=== PATIENT | male | born 1955 | race African-American/Black ===

== ENCOUNTER 2018-08-18 11:26 | Emergency (ER) | END 2018-08-18 12:37 | disposition home or self-care (01) ==

== ENCOUNTER 2019-04-25 16:12 | Emergency (ER) | payer MEDICARE, OTHER ==
[~2019-04-25] VITALS: Ht 190.5 cm; Wt 64.7 kg
[~2019-04-25 16:12] MED LIST: HYDR-4011 PO; HYDR-762 PO
[2019-04-25 16:19] VITALS: Ht 190.5 cm; Wt 64.7 kg
[2019-04-25] MEDS ORDERED: DOCU-144 PO (20:03)
[2019-04-25] MEDS ORDERED: SENN-120 PO (20:03)
[2019-04-25 20:12] VITALS: BP 163/108; PULSE 60; RESP 23
[2019-04-25] MEDS ORDERED: IBUPROFEN 800 MG TAB PO ONE (20:30)
--- NOTE | 2019-04-25 23:10 | ERD ---
ER Documentation Chief Complaint Chief Complaint SEVERE BACK PAIN - HX OF SCOLOSIS HPI Patient is a 64-year-old male with scoliosis who presents saying "back pain" and "I have scoliosis". He also feels constipated and says "my food is not being digested". He reports last bowel movement was yesterday. Upon review of old medical records this is the patient's fourth visit to the ER since 2014. He does not currently have a primary doctor. ROS All systems reviewed and are negative except as per history of present illness. Medications Home Meds Active Scripts Sennosides* (Senna Lax*) 8.6 Mg Tablet, 1 TAB PO DAILY, #30 TAB Prov:ROCKY MCKINNEY MD 04/25/19 Docusate Sodium* (Colace*) 100 Mg Capsule, 100 MG PO TID, #30 CAP Prov:ROCKY MCKINNEY MD 04/25/19 Hydrocodone/Acetaminophen ([place] 5-325 Tablet) 1 Each Tablet, 1 TAB PO Q6H PRN for PAIN, #10 TAB Prov:JAYCEE PAGE PA-C 08/18/18 Hydrocodone Bit-Acetaminophen* ([place]*) 10-325 Mg Tablet, 1 TAB PO Q6 PRN for PAIN, #20 TAB Prov:MARYSE GOMEZ MD 05/07/15 Allergies Allergies: Coded Allergies: No Known Allergy (Unverified , 04/25/19) PMhx/Soc Medical and Surgical Hx: pt denies Surgical Hx History of Surgery: No Anesthesia Reaction: No Hx Neurological Disorder: No Hx Respiratory Disorders: No Hx Psychiatric Problems: No Hx Miscellaneous Medical Probl: Yes (chronic back pain) Hx Alcohol Use: No Hx Substance Use: No Hx Tobacco Use: Yes Smoking Status: Current every day smoker FmHx Family History: diabetes Physical Exam Vitals Vital Signs Date Temp Pulse Resp B/P (MAP) Pulse Ox O2 O2 Flow FiO2 Time Delivery Rate 04/25/19 60 23 163/108 100 Room Air 20:12 (126) 04/25/19 71 19 110/53 97 Room Air 18:57 (72) 04/25/19 97.0 79 19 152/102 97 16:19 (119) Physical Exam Const: No acute distress Head: Atraumatic Eyes: Normal Conjunctiva ENT: Normal External Ears, Nose and Mouth. Neck: Full range of motion. No meningismus. Resp: Clear to auscultation bilaterally Cardio: Regular rate and rhythm, no murmurs Abd: Soft, non tender, non distended. Normal bowel sounds Skin: No petechiae or rashes Back: No midline or flank tenderness Ext: No cyanosis, or edema Neur: Awake and alert Psych: Normal Mood and Affect Results 24 hrs Current Medications Medications Dose Sig/Leah Start Time Status Last (Trade) Ordered Route PRN Stop Time Admin Dose Reason Admin Ibuprofen 800 mg ONCE ONCE 04/25/19 DC 04/25/19 (Motrin) PO 20:30 20:09 04/25/19 20:31 Procedures/MDM Smoking Cessation Therapy: Pt. was lectured for greater than 3 minutes on the health risks of continued smoking and the benefits of cessation. Patient is a 64-year-old male with scoliosis who presents with back pain and constipation. The patient will be given a prescription for senna and Colace. I doubt bowel obstruction. I do not believe patient requires further work-up at this time. I doubt epidural abscess, epidural hematoma, or cauda equina syndrome. The patient will need to follow-up closely with a primary doctor within the next 24 to 48 hours and I will give him information for the local clinics. The patient can return for any worsening symptoms. Departure Diagnosis: Primary Impression: Constipation Constipation type: unspecified constipation type Qualified Codes: K59.00 - Constipation, unspecified Additional Impression: Back pain Back pain location: low back pain Chronicity: acute Back pain laterality: unspecified Sciatica presence: unspecified whether sciatica present Qualified Codes: M54.5 - Low back pain Condition: Fair Patient Instructions: Back Pain (Acute Or Chronic), Constipation (Adult) Additional Instructions: Call your primary care doctor TOMORROW for an appointment during the next 1-2 days.See the doctor sooner or return here if your condition worsens before your appointment time. ROCKY MCKINNEY MD April 25, 2019 23:10
== END 2019-04-25 20:09 | disposition home or self-care (01) ==
LOC: E/R 16:12
DX: K59.00 Constipation, unspecified (principal); M54.5 Low back pain; F17.210 Nicotine dependence, cigarettes, uncomplicated
CPT/HCPCS: 99282

== ENCOUNTER 2019-05-27 13:11 | Emergency (ER) | payer MEDICARE, OTHER ==
[~2019-05-27] VITALS: Ht 190.5 cm; Wt 67.4 kg
[~2019-05-27 13:11] MED LIST changes: +DOCU-144 PO; +SENN-120 PO
[2019-05-27 13:18] VITALS: BP 128/84; PULSE 83; RESP 20; Ht 190.5 cm; Wt 67.4 kg
--- NOTE | 2019-05-27 14:42 | ERD ---
ER Documentation Chief Complaint Chief Complaint lower back pain, hx of 'spinal problems'. out of norco. ambulatory. HPI 64-year-old male, presents to the emergency department, requesting a refill for medication for constipation, acid reflux and lower back pain. The patient states that he has an appointment next week with his doctor. He currently denies abdominal pain, no fever or chills, no distal weakness numbness or tingling. ROS All systems reviewed and are negative except as per history of present illness. Medications Home Meds Active Scripts Ranitidine Hcl* (Zantac*) 150 Mg Tablet, 150 MG PO BID PRN for EPIGASTRIC PAIN, #30 TAB Prov:SURINDER MENDOZA MD 05/27/19 Docusate Sodium* (Colace*) 100 Mg Capsule, 100 MG PO TID, #30 CAP Prov:SURINDER MENDOZA MD 05/27/19 Hydrocodone/Acetaminophen ([place] 5-325 Tablet) 1 Each Tablet, 1 TAB PO BID PRN for PAIN for 10 Days, #20 TAB Prov:SURINDER MENDOZA MD 05/27/19 Sennosides* (Senna Lax*) 8.6 Mg Tablet, 1 TAB PO DAILY, #30 TAB Prov:ROCKY MCKINNEY MD 04/25/19 Docusate Sodium* (Colace*) 100 Mg Capsule, 100 MG PO TID, #30 CAP Prov:ROCKY MCKINNEY MD 04/25/19 Hydrocodone/Acetaminophen ([place] 5-325 Tablet) 1 Each Tablet, 1 TAB PO Q6H PRN for PAIN, #10 TAB Prov:JAYCEE PAGE PA-C 08/18/18 Hydrocodone Bit-Acetaminophen* ([place]*) 10-325 Mg Tablet, 1 TAB PO Q6 PRN for PAIN, #20 TAB Prov:MARYSE GOMZE MD 05/07/15 Allergies Allergies: Coded Allergies: No Known Allergy (Unverified , 04/25/19) PMhx/Soc History of Surgery: No Anesthesia Reaction: No Hx Neurological Disorder: No Hx Respiratory Disorders: No Hx Psychiatric Problems: No Hx Miscellaneous Medical Probl: No (chronic back pain R/T SCOLIOSIS) Hx Alcohol Use: No Hx Substance Use: No Hx Tobacco Use: Yes FmHx Family History: No diabetes, No coronary disease Physical Exam Vitals Vital Signs Date Temp Pulse Resp B/P (MAP) Pulse Ox O2 O2 Flow FiO2 Time Delivery Rate 05/27/19 98.2 83 20 128/84 98 13:18 (99) Physical Exam Const: No acute distress Head: Atraumatic Eyes: Normal Conjunctiva ENT: Normal External Ears, Nose and Mouth. Neck: Full range of motion. No meningismus. Resp: Clear to auscultation bilaterally Cardio: Regular rate and rhythm, no murmurs Abd: Soft, non tender, non distended. Normal bowel sounds Skin: No petechiae or rashes Back: Significant scoliosis no midline or flank tenderness Ext: No cyanosis, or edema Neur: Awake and alert Psych: Normal Mood and Affect Procedures/MDM At the time of discharge, patient nontoxic, ambulating, vital signs stable, no gross neurologic deficit. differential diagnosis include but not limited to: lumbar sprain/strain, sciatica, herniated disk, UTI less likely pyelo, kidney stone. Neurovascular exam grossly intact. no clinical findings suggestive of acute infectious process, no acute deformity, no edema, no rashes. Physical examination and clinical presentation consistent most likely with severe scoliosis with chronic back pain. Results and clinical impression discussed with the patient who agrees with management. The patient is stable to be treated outpatient and will be discharged home with recommendations and close monitoring The patient was informed that the evaluation in the emergency department has been done to rule out an acute emergency, therefore, chronic conditions like malignancy or autoimmune diseases have not been evaluated; therefore, the patient was instructed to follow up with the primary care provider in the next 48h. If symptoms persist, worsen or new symptoms develop, then patient should return to the ED immediately. Instructions explained and given to patient with acknowledgment and demonstrated understanding. Disclaimer: Inadvertent spelling and grammatical errors are likely due to EHR/dictation software use and do not reflect on the overall quality of patient care. Also, please note that the electronic time recorded on this note does not necessarily reflect the actual time of the patient encounter. Departure Diagnosis: Primary Impression: Encounter for medication refill Additional Impressions: Chronic back pain Severe scoliosis Condition: Stable Patient Instructions: Taking Medicine Safely Additional Instructions: Thank you very much for allowing us to participate in your care. Your health and safety is our top priority at [facility]. The evaluation in the emergency department has been done to rule out an acute emergency. Chronic, ihu-dpgf-utithaxqbac conditions may have not been evaluated; therefore, you need to follow up with a primary care provider in the next 48h. If symptoms persist, worsen or new symptoms develop, then patient should return to the ED immediately. Call your primary care doctor TOMORROW for an appointment during the next 2-4 days and bring all the information provided. Have prescriptions filled and follow precisely the directions on the label. If the symptoms get worse and your provider is unavailable, return to the Emergency Department immediately. SURINDER MENDOZA MD May 27, 2019 14:42
[2019-05-27] MEDS ORDERED: HYDR-4011 PO (15:08)
[2019-05-27] MEDS ORDERED: DOCU-144 PO (15:08)
[2019-05-27] MEDS ORDERED: RANI150T35 PO (15:20)
== END 2019-05-27 15:22 | disposition home or self-care (01) ==
LOC: FTE 13:11
DX: M54.5 Low back pain (principal); M41.9 Scoliosis, unspecified; Z76.0 Encounter for issue of repeat prescription; Z87.891 Personal history of nicotine dependence
CPT/HCPCS: 99281

== ENCOUNTER 2019-06-13 18:25 | Emergency (ER) | payer MEDICARE, OTHER ==
[~2019-06-13] VITALS: Ht 190.5 cm; Wt 66.8 kg
[~2019-06-13 18:25] MED LIST changes: +RANI150T35 PO
[2019-06-13 18:28] VITALS: BP 144/90; PULSE 100; RESP 20; Ht 190.5 cm; Wt 66.8 kg
--- NOTE | 2019-06-13 18:39 | ERD ---
ER Documentation Chief Complaint Chief Complaint states needs medication refill HPI 64-year-old male, with history of bipolar disorder and constipation, presents to the emergency department, requesting a refill for Linzess and Seroquel. No other complaints at this time. ROS All systems reviewed and are negative except as per history of present illness. Medications Home Meds Active Scripts Linaclotide (LINZESS) 145 Mcg Capsule, 145 MCG PO DAILY, #30 CAP Prov:SURINDER MENDOZA MD 06/13/19 Quetiapine Fumarate* (Quetiapine Fumarate*) 400 Mg Tablet, 400 MG PO HS, #30 TAB Prov:SURINDER MENDOZA MD 06/13/19 Ranitidine Hcl* (Zantac*) 150 Mg Tablet, 150 MG PO BID PRN for EPIGASTRIC PAIN, #30 TAB Prov:SURINDER MENDOZA MD 05/27/19 Docusate Sodium* (Colace*) 100 Mg Capsule, 100 MG PO TID, #30 CAP Prov:SURINDER MENDOZA MD 05/27/19 Hydrocodone/Acetaminophen ([place] 5-325 Tablet) 1 Each Tablet, 1 TAB PO BID PRN for PAIN for 10 Days, #20 TAB Prov:SURINDER MENDOZA MD 05/27/19 Sennosides* (Senna Lax*) 8.6 Mg Tablet, 1 TAB PO DAILY, #30 TAB Prov:ROCKY MCKINNEY MD 04/25/19 Docusate Sodium* (Colace*) 100 Mg Capsule, 100 MG PO TID, #30 CAP Prov:ROCKY MCKINNEY MD 04/25/19 Hydrocodone/Acetaminophen ([place] 5-325 Tablet) 1 Each Tablet, 1 TAB PO Q6H PRN for PAIN, #10 TAB Prov:JAYCEE PAGE PA-C 08/18/18 Hydrocodone Bit-Acetaminophen* ([place]*) 10-325 Mg Tablet, 1 TAB PO Q6 PRN for PAIN, #20 TAB Prov:MARYSE GOMEZ MD 05/07/15 Allergies Allergies: Coded Allergies: No Known Allergy (Unverified , 04/25/19) PMhx/Soc History of Surgery: No Anesthesia Reaction: No Hx Neurological Disorder: No Hx Respiratory Disorders: No Hx Psychiatric Problems: Yes Hx Miscellaneous Medical Probl: No (chronic back pain R/T SCOLIOSIS) Hx Alcohol Use: No Hx Substance Use: No Hx Tobacco Use: Yes FmHx Family History: diabetes Physical Exam Vitals Vital Signs Date Temp Pulse Resp B/P (MAP) Pulse Ox O2 O2 Flow FiO2 Time Delivery Rate 06/13/19 97.2 100 20 144/90 99 18:28 (108) Physical Exam Const: No acute distress Head: Atraumatic Eyes: Normal Conjunctiva ENT: Normal External Ears, Nose and Mouth. Neck: Full range of motion. No meningismus. Resp: Clear to auscultation bilaterally Cardio: Regular rate and rhythm, no murmurs Abd: Soft, non tender, non distended. Normal bowel sounds Skin: No petechiae or rashes Ext: No cyanosis, or edema Neur: Awake and alert Psych: Normal Mood and Affect Procedures/MDM Vital signs stable, physical examination unremarkable, no acute distress. The patient has a diagnosis of bipolar disorder and chronic constipation and today, is requesting a refill for Seroquel and Linzess. During the ED course the patient remained stable, no new complaints. Treatment options discussed with the patient who agrees with management. The patient is stable to be treated outpatient and will be discharged home with a Rx for Seroquel and Linzess, some side effects of prescribed medications (headache, rash, nausea, vomiting, diarrhea, drowsiness, habituation, bleeding, hypertens ion, interactions with other medications) were reviewed. Follow up with the primary care provider in the next 48h has been recommended. If symptoms persist, worsen or new symptoms develop, then patient should return to the ED immediately. Instructions explained and given directly by me to the patient with acknowledgment and demonstrated understanding. Disclaimer: Inadvertent spelling and grammatical errors are likely due to EHR/dictation software use and do not reflect on the overall quality of patient care. Also, please note that the electronic time recorded on this note does not necessarily reflect the actual time of the patient encounter. Departure Diagnosis: Primary Impression: Encounter for medication refill Condition: Stable Patient Instructions: Taking Medicine Safely Additional Instructions: Thank you very much for allowing us to participate in your care. Your health and safety is our top priority at [facility]. The evaluation in the emergency department has been done to rule out an acute emergency. Chronic, uwz-qnla-zstvbovaoqa conditions may have not been evaluated; therefore, you need to follow up with a primary care provider in the next 48h. If symptoms persist, worsen or new symptoms develop, then patient should return to the ED immediately. Call your primary care doctor TOMORROW for an appointment during the next 2-4 days and bring all the information provided. Have prescriptions filled and follow precisely the directions on the label. If the symptoms get worse and your provider is unavailable, return to the Emergency Department immediately. SURINDER MENDOZA MD Jun 13, 2019 18:39
[2019-06-13] MEDS ORDERED: QUET400T11 PO (18:41)
[2019-06-13] MEDS ORDERED: LINA145C PO (18:41)
== END 2019-06-13 18:43 | disposition home or self-care (01) ==
LOC: E/R 18:25
DX: Z76.0 Encounter for issue of repeat prescription (principal); Z87.891 Personal history of nicotine dependence
CPT/HCPCS: 99281

== ENCOUNTER 2019-06-24 07:34 | Emergency (ER) | payer OTHER, MEDICARE ==
[~2019-06-24] VITALS: Ht 190.5 cm; Wt 67.2 kg
[~2019-06-24 07:34] MED LIST changes: +LINA145C PO; +QUET400T11 PO
[2019-06-24 07:38] VITALS: BP 157/74; PULSE 106; RESP 20; Ht 190.5 cm; Wt 67.2 kg
--- NOTE | 2019-06-24 07:58 | ERD ---
ER Documentation Chief Complaint Chief Complaint LT SIDE ABD PAIN RADIATING TO BACK AFTER EATING HPI Patient is a 64-year-old male with a history of scoliosis and bipolar disorder who presents with complaints of food getting stuck. He says that he has pain in his lower back from the scoliosis and that "food goes and gets stuck near my rib cage". He said that he feels like it builds up and when it comes out its described as raw. The patient said that he has been dealing with this for the past 6 months. He did have a bowel movement today. Upon review of old medical records this is the patient's seventh visit to the ER since 2014 but he has had 3 visits to the emergency department this month. He has no primary doctor and no GI doctor. He has had no treatment today. ROS All systems reviewed and are negative except as per history of present illness. Medications Home Meds Active Scripts Linaclotide (LINZESS) 145 Mcg Capsule, 145 MCG PO DAILY, #30 CAP Prov:SURINDER MENDOZA MD 06/13/19 Quetiapine Fumarate* (Quetiapine Fumarate*) 400 Mg Tablet, 400 MG PO HS, #30 TAB Prov:SURINDER MENDOZA MD 06/13/19 Ranitidine Hcl* (Zantac*) 150 Mg Tablet, 150 MG PO BID PRN for EPIGASTRIC PAIN, #30 TAB Prov:SURINDER MENDOZA MD 05/27/19 Docusate Sodium* (Colace*) 100 Mg Capsule, 100 MG PO TID, #30 CAP Prov:SURINDER MENDOZA MD 05/27/19 Hydrocodone/Acetaminophen ([place] 5-325 Tablet) 1 Each Tablet, 1 TAB PO BID PRN for PAIN for 10 Days, #20 TAB Prov:SURINDER MENDOZA MD 05/27/19 Sennosides* (Senna Lax*) 8.6 Mg Tablet, 1 TAB PO DAILY, #30 TAB Prov:ROCKY MCKINNEY MD 04/25/19 Docusate Sodium* (Colace*) 100 Mg Capsule, 100 MG PO TID, #30 CAP Prov:ROCKY MCKINNEY MD 04/25/19 Hydrocodone/Acetaminophen ([place] 5-325 Tablet) 1 Each Tablet, 1 TAB PO Q6H PRN for PAIN, #10 TAB Prov:JAYCEE PAGE PA-C 08/18/18 Hydrocodone Bit-Acetaminophen* ([place]*) 10-325 Mg Tablet, 1 TAB PO Q6 PRN for PAIN, #20 TAB Prov:MARYSE GOMEZ MD 05/07/15 Allergies Allergies: Coded Allergies: No Known Allergy (Unverified , 04/25/19) PMhx/Soc History of Surgery: No Anesthesia Reaction: No Hx Neurological Disorder: No Hx Respiratory Disorders: No Hx Psychiatric Problems: Yes Hx Miscellaneous Medical Probl: No (chronic back pain R/T SCOLIOSIS) Hx Alcohol Use: No Hx Substance Use: No Hx Tobacco Use: Yes FmHx Family History: diabetes Physical Exam Vitals Vital Signs Date Temp Pulse Resp B/P (MAP) Pulse Ox O2 O2 Flow FiO2 Time Delivery Rate 06/24/19 97.8 106 20 157/74 98 07:38 (101) Physical Exam Const: No acute distress Head: Atraumatic Eyes: Normal Conjunctiva ENT: Normal External Ears, Nose and Mouth. Neck: Full range of motion. No meningismus. Resp: Clear to auscultation bilaterally Cardio: Regular rate and rhythm, no murmurs Abd: Soft, non tender, non distended. Normal bowel sounds Skin: No petechiae or rashes Back: Significant scoliosis Ext: No cyanosis, or edema Neur: Awake and alert Psych: Normal Mood and Affect Procedures/MDM Smoking Cessation Therapy: Pt. was lectured for greater than 3 minutes on the health risks of continued smoking and the benefits of cessation. Patient is a 64-year-old male with history of scoliosis and bipolar disorder who presents with feelings of food not passing through his GI tract appropriately. The patient did have a bowel movement today. He feels however that is food getting stuck near his spine. He is in no acute distress in the emergency department and is otherwise well-appearing. He has been dealing with this for 6 months. I believe outpatient management is appropriate and I do not believe he requires work-up in the emergency department at this time. The patient will be given information for the local clinics so that he can obtain a primary doctor which is important for him. He also will be given information for Dr. Barron as he could follow-up with a GI doctor for further evaluation about his GI motility. The patient can return for any worsening symptoms. Departure Diagnosis: Primary Impression: Chronic back pain Back pain location: back pain in unspecified location Back pain laterality: unspecified Qualified Codes: M54.9 - Dorsalgia, unspecified; G89.29 - Other chronic pain Additional Impression: Severe scoliosis Condition: Fair Patient Instructions: Understanding Scoliosis Referrals: RUPERTO BARRON MD [facility] YOU HAVE RECEIVED A MEDICAL SCREENING EXAM AND THE RESULTS INDICATE THAT YOU DO NOT HAVE A CONDITION THAT REQUIRES URGENT TREATMENT IN THE EMERGENCY DEPARTMENT. FURTHER EVALUATION AND TREATMENT OF YOUR CONDITION CAN WAIT UNTIL YOU ARE SEEN IN YOUR DOCTORS OFFICE WITHIN THE NEXT 1-2 DAYS. IT IS YOUR RESPONSIBILITY TO MAKE AN APPOINTMENT FOR FOLOW-UP CARE. IF YOU HAVE A PRIMARY DOCTOR --you should call your primary doctor and schedule an appointment IF YOU DO NOT HAVE A PRIMARY DOCTOR YOU CAN CALL OUR PHYSICIAN REFERRAL HOTLINE AT IF YOU CAN NOT AFFORD TO SEE A PHYSICIAN YOU CAN CHOSE FROM THE FOLLOWING [facility] [address] [facility] [address] [facility] [facility] [address] [facility] [address] [facility] [place] [address] [facility]. [facility]. [address] Additional Instructions: Call your primary care doctor TOMORROW for an appointment during the next 1 WEEK.Tell the guidance secretary that you were referred from this facility.See the doctor sooner or return here if your condition worsens before your appointment time. ROCKY MCKINNEY MD Jun 24, 2019 07:58
[2019-06-24] MEDS ORDERED: SENN-120 PO (08:34)
[2019-06-24] MEDS ORDERED: DOCU-144 PO (08:34)
== END 2019-06-24 08:53 | disposition home or self-care (01) ==
LOC: E/R 07:34
DX: M41.9 Scoliosis, unspecified (principal); G89.29 Other chronic pain; Z87.891 Personal history of nicotine dependence
CPT/HCPCS: 99282

== ENCOUNTER 2019-07-25 09:34 | Emergency (ER) | payer SELFPAY ==
[~2019-07-25] VITALS: Ht 190.5 cm; Wt 68.2 kg
[~2019-07-25 09:34] MED LIST changes: +NALO25TA PO
[2019-07-25 09:43] VITALS: Ht 190.5 cm; Wt 68.2 kg
[2019-07-25] MEDS ORDERED: LACTULOSE 30ML CUP PO ONE (10:00)
[2019-07-25] MEDS ORDERED: BISACODYL 10 MG SUPP PR ONE (10:00)
[2019-07-25] MEDS ORDERED: IBUPROFEN 800 MG TAB PO ONE (11:00)
[2019-07-25 11:24] VITALS: BP 128/78; PULSE 87; RESP 16
== END 2019-07-25 11:27 | disposition home or self-care (01) ==
LOC: E/R 09:34
DX: K59.00 Constipation, unspecified (principal); K62.5 Hemorrhage of anus and rectum
CPT/HCPCS: 99284

== ENCOUNTER 2019-08-09 14:17 | Emergency (ER) | payer SELFPAY ==
[~2019-08-09] VITALS: Ht 157.5 cm; Wt 73.0 kg
[~2019-08-09 14:17] MED LIST changes: +RANI-535 PO; -RANI150T35 PO
[2019-08-09 14:21] VITALS: Ht 157.5 cm; Wt 73.0 kg
[2019-08-09] MEDS ORDERED: ONDANSETRON 4 MG INJ IV STA (16:52)
[2019-08-09] MEDS ORDERED: morphine 4 MG/ML VIAL IV STA (16:52)
[2019-08-09] MEDS ORDERED: SOD CHLORIDE 0.9% 1,000 ML IV STA (16:52)
[2019-08-09 22:13] VITALS: BP 130/80; PULSE 82; RESP 18
== END 2019-08-10 04:54 | disposition short-term general hospital (02) ==
LOC: E/R 14:17
DX: N17.9 Acute kidney failure, unspecified (principal); F17.210 Nicotine dependence, cigarettes, uncomplicated
CPT/HCPCS: 74176; 80053; 81001; 83690; 85025; J2270; J2405; J7030; 36415; 96361; 96374; 96375